=== PATIENT | male | born 1995 | race Caucasian/White ===

== ENCOUNTER 2016-12-18 09:59 | Emergency (ER) | payer BC ==
[2016-12-18 10:19] VITALS: BP 122/56
--- NOTE | 2016-12-18 11:04 | Emergency Department Report ---
- General Chief Complaint: Sore Throat Stated Complaint: THROAT SWELLING Time Seen by Provider: 12/18/16 10:59 Source: patient, EMS Mode of arrival: Stretcher Limitations: No Limitations - History of Present Illness -: Sudden Severity: mild Quality: other (felt like his throat was swelling) Consistency: intermittent, now resolved, other (off and on this week. denies exposure to shell fish. denies anxiety. no wheezing. was at work when this happened. 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 denies: fever, chills, myalgias, diaphoresis, headache, rhinorrhea, nasal congestion, sore throat, stiff neck, cough, chest pain, shortness of breath, abdominal pain, nausea, vomiting, diarrhea, dysuria, rash, confusion, right sweats, weight loss, epistaxis, hoarseness, ear pain Treatments Prior to Arrival: none, other (came via ems) - Related Data Previous Rx's Medication Instructions Recorded Last Taken Type Meclizine HCl [Antivert] 25 mg PO BID PRN #20 tablet 01/10/14 Unknown Rx Butalb/Acetaminophen/Caffeine 1 each PO Q6H PRN #15 capsule 04/10/15 Unknown Rx [Fioricet 50-300-40 mg CAP] Allergies Allergy/AdvReac Type Severity Reaction Status Date / Time shrimp Allergy Swelling Verified 12/18/16 10:20 ED Review of Systems ROS: Stated complaint: THROAT SWELLING Other details as noted in HPI Comment: Unobtainable due to pts medical conditions Constitutional: no symptoms reported, see HPI. denies: chills, diaphoresis, fever, malaise Eyes: as per HPI. denies: eye pain, eye discharge, vision change ENT: as per HPI. denies: ear pain, throat pain, dental pain, hearing loss, epistaxis, congestion Respiratory: no symptoms reported, see HPI. denies: cough, orthopnea, shortness of breath, SOB with exertion, SOB at rest, stridor, wheezing Cardiovascular: as per HPI. denies: chest pain, palpitations, dyspnea on exertion, orthopnea, edema, syncope, paroxysmal nocturnal dyspnea Endocrine: no symptoms reported, see HPI. denies: excessive sweating, flushing , intolerance to cold, intolerance to heat Gastrointestinal: as per HPI. denies: abdominal pain, nausea, vomiting Genitourinary: as per HPI. denies: urgency, dysuria Musculoskeletal: as per HPI. denies: back pain Skin: as per HPI. denies: rash, lesions Neurological: as per HPI. denies: headache, weakness Psychiatric: as per HPI. denies: anxiety, depression, auditory hallucinations, visual hallucinations, homicidal thoughts Hematological/Lymphatic: as per HPI. denies: easy bleeding, easy bruising ED Past Medical Hx - Past Medical History Hx Asthma: Yes (as child he is 21; works as professor of mechanical engineering) - Surgical History Past Surgical History?: Yes Additional Surgical History: tubes in ear farhan as child - Family History Family history: no significant - Social History Smoking Status: Never Smoker Substance Use Type: None, Other (denies all. yest was his bday and he was w family eating) - Medications Home Medications: Home Medications Medication Instructions Recorded Confirmed Last Taken Type Meclizine HCl [Antivert] 25 mg PO BID PRN #20 tablet 01/10/14 Unknown Rx Butalb/Acetaminophen/Caffeine 1 each PO Q6H PRN #15 capsule 04/10/15 Unknown Rx [Fioricet 50-300-40 mg CAP] ED Physical Exam - General Limitations: No Limitations General appearance: alert, in no apparent distress - Head Head exam: Present: atraumatic - Eye Eye exam: Present: PERRL - ENT ENT exam: Present: normal exam, mucous membranes moist, TM's normal bilaterally , normal external ear exam. Absent: normal orophraynx, mucous membranes dry - Neck Neck exam: Present: normal inspection, full ROM. Absent: tenderness, meningismus, lymphadenopathy, thyromegaly - Respiratory Respiratory exam: Present: normal lung sounds bilaterally. Absent: respiratory distress, wheezes, rales, rhonchi, stridor, chest wall tenderness, accessory muscle use, decreased breath sounds, prolonged expiratory - Cardiovascular Cardiovascular Exam: Present: regular rate, normal rhythm - GI/Abdominal GI/Abdominal exam: Present: soft, normal bowel sounds - Rectal Rectal exam: Present: deferred - Extremities Exam Extremities exam: Present: normal inspection, full ROM. Absent: tenderness - Back Exam Back exam: Present: normal inspection, full ROM. Absent: tenderness, CVA tenderness (R) - Neurological Exam Neurological exam: Present: alert, altered, oriented X3, CN II-XII intact, normal gait, reflexes normal. Absent: abnormal gait - Psychiatric Psychiatric exam: Present: normal affect, normal mood, anxious - Skin Skin exam: Present: warm, dry, intact, normal color. Absent: rash ED Course Vital Signs 12/18/16 10:11 Temperature 98.3 F Pulse Rate 78 Respiratory 16 Rate Blood Pressure 122/56 Blood Pressure 122/56 [Left] O2 Sat by Pulse 100 Oximetry - Reevaluation(s) Reevaluation #1: pt to er via ems p he had an episode at work where he felt like his throat was swelling ems found 100% RA sat no wob no sob no cp pt to ft on arrival to er vss 100% ra sat denied co states he feels fine now states he has had this a couple times this week martínez when around his fam that smokes his bd was yesterday he stated he was w fam and they ate cake denied drugs or etoh hx asthma also works as a professor of mechanical engineering today's incident was when he was at work and he reports fumes in shop no fever no exudates exam wnl no wheezing no other co decadron for comfort- 12/18/16 12:10 xray noted sat 100 on recheck pt playing on phone ED Medical Decision Making - Medical Decision Making xray n pt monitored vss sat 100 ra no sob or inc wob - Differential Diagnosis anxiety; exposure to irritants at work Critical care attestation.: If time is entered above; I have spent that time in minutes in the direct care of this critically ill patient, excluding procedure time. ED Disposition Clinical Impression: Irritated throat Disposition: DC-01 TO HOME OR SELFCARE Is pt being admited?: No Does the pt Need Aspirin: No Condition: Stable Instructions: Chemical Pneumonitis (ED) Additional Instructions: avoid closed areas with fumes avoid second hand smoke if continue to have this see PCP name given here to evaluate further. Referrals: PRIMARY CARE, [Primary Care Provider] - 3-5 Days Time of Disposition: 12:11
[2016-12-18] MEDS ORDERED: DECADRON IM ONE (11:49)
--- NOTE | 2016-12-18 12:01 | XRay Report ---
CHEST TWO VIEWS: 12/18/16 11:08 CLINICAL: Shortness of breath. COMPARISON: None FINDINGS: Normal heart and pulmonary vasculature. The lungs are normally expanded and clear. The bones and soft tissues are normal. IMPRESSION: Normal chest.
== END 2016-12-18 12:32 | disposition home or self-care (01) ==
LOC: ED 09:59
DX: R07.0 Pain in throat (principal); J39.2 Other diseases of pharynx; J45.909 Unspecified asthma, uncomplicated; Z91.013 Allergy to seafood
CPT/HCPCS: 71020; 96372; 99283; J1100